=== PATIENT | male | born 2000 | race Two or more races ===

== ENCOUNTER 2020-01-17 01:13 | Emergency (ER) | payer OTHER ==
[~2020-01-17] VITALS: Ht 170.2 cm; Wt 98.4 kg
[2020-01-17 04:23] VITALS: BP 145/79
== END 2020-01-17 05:41 | disposition home or self-care (01) ==
LOC: ER 01:13
DX: S61.216A Laceration without foreign body of right little finger without damage to nail, initial encounter (principal); W23.0XXA Caught, crushed, jammed, or pinched between moving objects, initial encounter; Y93.89 Activity, other specified; Y92.89 Other specified places as the place of occurrence of the external cause; Y99.0 Civilian activity done for income or pay
CPT/HCPCS: 12002; 73130

== ENCOUNTER 2020-01-22 16:31 | Emergency (ER) | payer OTHER ==
[~2020-01-22] VITALS: Ht 170.2 cm; Wt 98.4 kg
[2020-01-22 16:58] VITALS: BP 122/56
== END 2020-01-23 00:59 | disposition left against medical advice (07) ==
LOC: ER 16:31
DX: S61.216D Laceration without foreign body of right little finger without damage to nail, subsequent encounter (principal); X58.XXXD Exposure to other specified factors, subsequent encounter